=== PATIENT | female | born 1935 | race Caucasian/White ===

== ENCOUNTER 2019-01-21 11:38 | Day surgery (SDC) | payer OTHER | END 2019-01-21 17:27 | disposition home or self-care (01) | LOC: FASU 11:38 ==

== ENCOUNTER 2019-02-25 07:27 | Day surgery (SDC) | payer OTHER ==
[2019-02-25] MEDS: OFLOXACIN 0.3% OPHTHALMIC SOLUTION 5 ML BOTTLE ONE ×4 (08:40→08:55)
[2019-02-25] MEDS: CYCLOPENTOLATE HCL 1% OPHTH SOLN 2 ML BOTTLE ONE ×4 (08:40→08:55)
[2019-02-25] MEDS: PHENYLEPHRINE 2.5% OPHTH SOLN 15 ML BOTTLE ONE ×4 (08:40→08:55)
[2019-02-25] MEDS: TROPICAMIDE 1% OPHTH SOLN 15 ML BOTTLE ONE ×4 (08:40→08:55)
[2019-02-25] MEDS: KETOROLAC TROMETHAMINE 0.5% EYE DROP 1 DROP DROPS ONE ×4 (08:40→08:55)
[2019-02-25] MEDS ORDERED: PROPOFOL 20 ML ONE (09:22)
[2019-02-25] MEDS ORDERED: LIDOCAINE HCL 2% JELLY 10 ML CARTRIDGE ONE (09:28)
[2019-02-25] MEDS ORDERED: TETRACAINE 0.5% OPHTH SOLN 2 ML BOTTLE ONE (09:28)
[2019-02-25] MEDS ORDERED: EPI-SHUGARCAINE (EPINEPHRINE 0.025% & LIDOCAINE-PF 0.75%) 4ML ONE (09:28)
[2019-02-25] MEDS ORDERED: CARBACHOL 0.01% INTRA-OCULAR 1.5 ML VIAL ONE (09:29)
[2019-02-25] MEDS ORDERED: ACETYLCHOLINE 1:100 INTRA-OCUL 20 MG/2 ML KIT ONE (09:29)
[2019-02-25] MEDS ORDERED: ACETAMINOPHEN 500 MG TABLET (FP) PO PRN (09:43)
[2019-02-25] MEDS ORDERED: oxyCODONE HCL 5 MG TABLET PO PRN (09:43)
[2019-02-25] MEDS ORDERED: ONDANSETRON 4 MG/2 ML VIAL IVPUSH PRN (09:43)
[2019-02-25] MEDS ORDERED: BSS (NA/CA/MG/K) BALANCED SALT SOLUTION OPHTH SOLN 15 ML BOTTLE ONE (11:41)
[2019-02-25] MEDS ORDERED: methylPREDNISolone NA SUCC 40 MG/1 ML VIAL ONE (12:11)
[2019-02-25] MEDS ORDERED: LABETALOL HCL 5 MG/1 ML (100MG/20 ML VIAL) ONE (12:11)
[2019-02-25] MEDS ORDERED: LIDOCAINE 1% P/F 10 MG/ML VIAL ONE (12:11)
[2019-02-25] MEDS ORDERED: ACETAMINOPHEN 325 MG TABLET (FP) PO PRN (12:32)
--- NOTE | 2019-02-25 13:30 | OP ---
DATE OF OPERATION: 02/25/2019 PROCEDURE: Planned extracapsular cataract extraction, attempted phacoemulsification, removal of nucleus, and insertion of posterior chamber lens implant of the right eye with pupillary myosis and iris hook use. SURGEON: Humble Medley MD [employer] SURGEON: Eli Hyman MD ANESTHESIA: Local with standby. COOK 3 PASTRY: Amara Weaver MD COMPLICATIONS: None. PREOPERATIVE DIAGNOSIS: Hypermature cataract, right eye, pupillary myosis. POSTOPERATIVE DIAGNOSIS: Hypermature cataract, right eye, pupillary myosis. COMPLICATIONS: None. ADDENDUM: It shoud be noted that iris hooks, all 4, were removed from the eye prior to the irrigation/aspiration of Viscoat from the implant after the implantation and also that at the end of the procedure, that the implant was in the posterior chamber centrally located with a round pupil, intact posterior capsule, red reflex present, and the globe intact with a normal pressure. FINDINGS/PROCEDURE: After successful peribulbar anesthesia was given to the right eye in the operating room, the patient was prepped and draped in the usual manner to expose the right eye with Tegaderm strips and lid speculum inserted to keep the lids apart, and the microscope brought into position over the right eye. Patient was prepped and draped prior to that. Attention was focused to the superior fornix. A fornix-based flap was fashioned using Ramon scissors and 0.12 forceps superiorly for 12 mm using Ramon scissors and 0.12 forceps, and hemostasis achieved with Wet-Field cautery. Limbal grill was fashioned for 3 mm with the crescent blade dissecting anterior into clear cornea, and a 3-mm blade was used to enter the anterior chamber. Then Shugarcaine was injected into the anterior chamber as was Viscoat, and then because of the pupillary myosis, iris hooks were used to enlarge the pupillary opening to about 7 mm. Anterior capsulotomy was performed under Viscoat, and this was followed by attempted phacoemulsification and bilateral technique, but conversion to a manual extracapsular cataract removal with a lens loupe was done after it was noted that the nucleus was not being phacoemulsified very easily and there was a risk to posterior capsular rupture. The nucleus was delivered with a lens loupe without complication after the wound had been opened up to 11 mm with corneal scleral scissors to the left and right. It should be noted that Viscoat was used throughout the procedure to protect to endothelium and that there were pre-placed sutures at either ends of the incision. Four additional 10-0 Ethilon sutures were placed to close the wound down so that irrigation/aspiration could be performed. After this was done, Provisc was then injected in the posterior chamber to deepen it. The implant was inspected carefully through the microscope, found to be free of defects, debris, and flaws, irrigated thoroughly. Was folded, placed in the Provisc-filled cartilage. The cartilage placed in the injector, and the implant was injected into the posterior chamber with the inferior haptic in the inferior capsular bag and the superior haptic in the superior capsular bag. The Provisc was then aspirated out replaced with Miochol, Miostat, and BSS. The wound was closed with a total of 8 interrupted 2-0 Ethilon sutures. Conjunctival tenon flap was reapproximated, and at the end of the procedure, a subconjunctival injection of 40 mg of Solu-Medrol and 1% lidocaine was given inferiorly as was topical Betoptic S, Maxitrol ophthalmic suspension, and bacitracin Polytrim ophthalmic ointment. The conjunctival tenon flap was reapproximated. The Tegaderm strips and lid speculum were removed from the eyelid. The lids were closed and a patch and shield placed on the eye and the patient then discharged from the operating room to the recovery area in good condition having tolerated this procedure well. Kamryn [id number]
== END 2019-02-25 13:15 | disposition home or self-care (01) ==
LOC: FASU 07:27
PROVIDERS: ATTEND Ophthalmology
PROC: 08RJ3JZ Replacement of Right Lens with Synthetic Substitute, Percutaneous Approach (ICD-10-PCS; principal; 2019-02-25 10:13)
DX: H25.21 Age-related cataract, morgagnian type, right eye (principal); H57.03 Miosis